=== PATIENT | female | born 1955 | race Caucasian/White ===

== ENCOUNTER 2017-11-13 08:53 | Day surgery (SDC) | payer MEDICAID ==
[~2017-11-13] VITALS: Ht 157.5 cm; Wt 117.0 kg
[2017-11-13 08:40] VITALS: BP 136/80
[~2017-11-13 08:53] MED LIST: ALBU8.5H8 INH; AMLO5TAB16 PO; ATOR-2 PO; AZIT250T PO; CARV-49 PO; CEFP100T7 PO; CEPH500C5 PO; GABA-532 PO; GUAI120L55 PO; INSU100V36 SQ; LACT1CAP26 PO; LANTUS SQ; METF10002 PO; MOME13HF2 INH; PHEN-716 PO; POTA10TA15 PO; SPIIN IH; TRAZ-143 PO; VALS80TA31 PO
[2017-11-13] MEDS ORDERED: LIDOcaine 1% (10mg/ml) 2ml vial ONE (08:54)
[2017-11-13] MEDS ORDERED: normal saline 1000ml 1,000 ML IV PRN (09:05)
[2017-11-13] MEDS ORDERED: PROC10VI (09:27)
[2017-11-13] MEDS ORDERED: ONDA4TAB9 SL (09:27)
[2017-11-13] MEDS ORDERED: DOCU-148 PO (09:27)
[2017-11-13] MEDS ORDERED: ATR0.5NEB IH (09:27)
[2017-11-13] MEDS ORDERED: ASPI-611 PO (09:27)
[2017-11-13] MEDS ORDERED: HYDR-3964 PO (09:27)
[2017-11-13] MEDS ORDERED: FLUT1BLS3 (09:27)
[2017-11-13] MEDS ORDERED: POLY17PO10 PO (09:27)
[2017-11-13] MEDS ORDERED: DOCU283E2 (09:27)
[2017-11-13] MEDS ORDERED: OMEP20TA23 PO (09:27)
[2017-11-13] MEDS ORDERED: ACET650T11 (09:27)
[2017-11-13] MEDS ORDERED: HEPARIN SUBCUT (09:27)
[2017-11-13] MEDS ORDERED: TIOT18CA3 (09:27)
[2017-11-13] MEDS ORDERED: FOLI1CAP PO (09:27)
[2017-11-13] MEDS ORDERED: ALB0.5UD IH (09:27)
[2017-11-13] MEDS ORDERED: TRAM50TA2 PO (09:27)
[2017-11-13] MEDS ORDERED: BISA10SU60 (09:27)
[2017-11-13] MEDS ORDERED: FURO-149 PO (09:27)
[2017-11-13] MEDS ORDERED: SEVE800T8 PO (09:27)
[2017-11-13] MEDS ORDERED: CARV3.12 PO (09:27)
[2017-11-13] MEDS ORDERED: fentaNYL/PF 50MCG/1 ML 2ML syringe IV PRN (10:25)
[2017-11-13] MEDS ORDERED: heparin 1,000 units/ml 10ml inj ICATH ONE (10:25)
[2017-11-13] MEDS ORDERED: LIDOcaine 1%/PF (10mg/ml) 5ml vial SQ ONE (10:25)
[2017-11-13] MEDS ORDERED: LIDOcaine 1%/PF (10mg/ml) 5ml vial ONE (10:31)
[2017-11-13] MEDS ORDERED: fentaNYL/PF 50MCG/1 ML 2ML syringe ONE (10:39)
[2017-11-13] MEDS ORDERED: heparin 1,000unit/ml 10ml vial 10 ML ONE (10:40)
[2017-11-13 10:43] VITALS: BP 180/89
[2017-11-13] MEDS ORDERED: cefazolin/dext.iso 2gm/50ml 50 ML IV ONE (10:53)
[2017-11-13 11:10] VITALS: BP 98/58
[2017-11-13 11:15] VITALS: BP 99/60
[2017-11-13 11:30] VITALS: BP 134/63
[2017-11-13 11:45] VITALS: BP 123/58
[2017-11-13] MEDS ORDERED: cefazolin/dext.iso 2gm/50ml 50 ML IV SCH (16:00)
== END 2017-11-13 11:53 | disposition home or self-care (01) ==
LOC: SSTAY O 08:53
PROVIDERS: ATTEND Radiology Diagnostic Radiology
DX: T82.49XA Other complication of vascular dialysis catheter, initial encounter (principal); E11.22 Type 2 diabetes mellitus with diabetic chronic kidney disease; I12.9 Hypertensive chronic kidney disease with stage 1 through stage 4 chronic kidney disease, or unspecified chronic kidney disease; N18.9 Chronic kidney disease, unspecified; J44.9 Chronic obstructive pulmonary disease, unspecified; E78.5 Hyperlipidemia, unspecified; M19.90 Unspecified osteoarthritis, unspecified site; K21.9 Gastro-esophageal reflux disease without esophagitis; Z90.710 Acquired absence of both cervix and uterus; Z98.890 Other specified postprocedural states; Z89.512 Acquired absence of left leg below knee; Z79.4 Long term (current) use of insulin; Y83.8 Other surgical procedures as the cause of abnormal reaction of the patient, or of later complication, without mention of misadventure at the time of the procedure; Y92.9 Unspecified place or not applicable
CPT/HCPCS: 36581; 77001; 82948; C1750; C1769; J0690; J1644; J2001; J3010; J3490; J7030

== ENCOUNTER 2017-11-22 08:27 | Day surgery (SDC) | payer MEDICAID ==
[~2017-11-22] VITALS: Ht 157.5 cm; Wt 117.0 kg
[~2017-11-22 08:27] MED LIST changes: +ACET650T11; +ALB0.5UD IH; -ALBU8.5H8 INH; -AMLO5TAB16 PO; +ASPI-611 PO; +ATR0.5NEB IH; -AZIT250T PO; +BISA10SU60; -CARV-49 PO; +CARV3.12 PO; -CEFP100T7 PO; -CEPH500C5 PO; +DOCU-148 PO; +DOCU283E2; +FLUT1BLS3; +FOLI1CAP PO; +FURO-149 PO; -GUAI120L55 PO; +HEPARIN SUBCUT; +HYDR-3964 PO; -LACT1CAP26 PO; -METF10002 PO; -MOME13HF2 INH; +OMEP20TA23 PO; +ONDA4TAB9 SL; -PHEN-716 PO; +POLY17PO10 PO; -POTA10TA15 PO; +PROC10VI; +SEVE800T8 PO; +TIOT18CA3; +TRAM50TA2 PO; -TRAZ-143 PO; -VALS80TA31 PO
[2017-11-22 08:50] VITALS: BP 156/83
[2017-11-22] MEDS ORDERED: normal saline 1000ml 1,000 ML IV PRN (08:50)
[2017-11-22] MEDS ORDERED: ATOR40TA PO (09:17)
[2017-11-22 09:41] LABS: BASOPHILS # (AUTO) 0.1 X10'3 (0-0.2); BASOPHILS % (AUTO) 0.5 % (0-1); EOSINOPHILS # (AUTO) 0.7 X10'3 (0-0.9); EOSINOPHILS % (AUTO) 6.5 % (0-6); HEMATOCRIT 38.7 % (35.0-45.0); HEMOGLOBIN 12.1 g/dl (12.0-16.0); LYMPHOCYTES # (AUTO) 2.1 X10'3 (1.1-4.8); LYMPHOCYTES % (AUTO) 18.8 % (21-51); MEAN CORPUSCULAR HEMOGLOBIN 27.1 PG (27.0-31.0); MEAN CORPUSCULAR HGB CONC 31.4 % (33.0-36.5); MEAN CORPUSCULAR VOLUME 86.4 FL (78-98); MEAN PLATELET VOLUME 8.3 FL (7.4-10.4); MONOCYTES # (AUTO) 0.8 X10'3 (0-0.9); MONOCYTES % (AUTO) 7.3 % (2-12); NEUTROPHILS # (AUTO) 7.4 X10'3 (1.8-7.7); NEUTROPHILS % (AUTO) 66.9 % (42-75); PLATELET COUNT 487 X10'3 (140-440); RED BLOOD COUNT 4.48 X10'6 (4.20-5.60); RED CELL DISTRIBUTION WIDTH 16.5 % (11.5-14.5); WHITE BLOOD COUNT 11.1 X10'3 (4.5-11.0)
[2017-11-22] MEDS ORDERED: LIDOcaine 1%/PF (10mg/ml) 5ml vial SQ ONE (10:40)
[2017-11-22] MEDS ORDERED: heparin 1,000 units/ml 10ml inj ICATH ONE (10:40)
[2017-11-22] MEDS ORDERED: fentaNYL/PF 50MCG/1 ML 2ML syringe IV PRN (10:40)
[2017-11-22] MEDS ORDERED: midazolam 2 mg/2 ml injection IV PRN (10:40)
[2017-11-22] MEDS ORDERED: HYDR-4069 PO (10:52)
[2017-11-22] MEDS ORDERED: ACET-2144 PO (11:00)
[2017-11-22] MEDS ORDERED: AMLO10TA4 PO (11:00)
[2017-11-22] MEDS ORDERED: LACT1CAP65 PO (11:00)
[2017-11-22] MEDS ORDERED: fentaNYL/PF 50MCG/1 ML 2ML syringe ONE (11:04)
[2017-11-22] MEDS ORDERED: heparin 1,000unit/ml 10ml vial 10 ML ONE (11:04)
[2017-11-22] MEDS ORDERED: midazolam 2 mg/2 ml injection ONE (11:04)
[2017-11-22] MEDS ORDERED: iohexol 300 MG/1 ML 50ml polymer ONE (11:08)
[2017-11-22] MEDS ORDERED: LIDOcaine 1%/PF (10mg/ml) 5ml vial ONE (11:26)
[2017-11-22 12:10] VITALS: BP 153/68
[2017-11-22 12:25] VITALS: BP 145/70
[2017-11-22 12:40] VITALS: BP 147/87
[2017-11-22 12:55] VITALS: BP 147/81
[2017-11-22 13:06] VITALS: BP 153/83
== END 2017-11-22 13:15 ==
LOC: SSTAY O 08:27
PROVIDERS: ATTEND Radiology Diagnostic Radiology
DX: T82.49XA Other complication of vascular dialysis catheter, initial encounter (principal); I13.0 Hypertensive heart and chronic kidney disease with heart failure and stage 1 through stage 4 chronic kidney disease, or unspecified chronic kidney disease; N18.9 Chronic kidney disease, unspecified; I50.9 Heart failure, unspecified; E78.5 Hyperlipidemia, unspecified; J44.9 Chronic obstructive pulmonary disease, unspecified; K21.9 Gastro-esophageal reflux disease without esophagitis; F32.9 Major depressive disorder, single episode, unspecified; M19.90 Unspecified osteoarthritis, unspecified site; Z79.4 Long term (current) use of insulin; Z82.3 Family history of stroke; Z89.512 Acquired absence of left leg below knee; Z90.710 Acquired absence of both cervix and uterus; Z79.82 Long term (current) use of aspirin; Z87.891 Personal history of nicotine dependence; Z90.49 Acquired absence of other specified parts of digestive tract; Z95.828 Presence of other vascular implants and grafts; Z79.899 Other long term (current) drug therapy; Z98.890 Other specified postprocedural states; Z86.14 Personal history of Methicillin resistant Staphylococcus aureus infection; Y83.8 Other surgical procedures as the cause of abnormal reaction of the patient, or of later complication, without mention of misadventure at the time of the procedure; Y92.89 Other specified places as the place of occurrence of the external cause
CPT/HCPCS: 36415; 36581; 77001; 85025; 99152; 99153; A9270; C1750; C1769; J1644; J2001; J2250; J3010; J7030; Q9967; A4620

== ENCOUNTER 2018-01-12 14:45 | Inpatient (IN) | payer MEDICAID ==
[~2018-01-12] VITALS: Ht 172.7 cm; Wt 89.4 kg
[~2018-01-12 14:45] MED LIST changes: +ACET-2144 PO; +AMLO10TA4 PO; -ATOR-2 PO; +ATOR40TA PO; -DOCU283E2; +HYDR-4069 PO; +LACT1CAP65 PO; -TIOT18CA3
[2018-01-12 15:09] LABS: CLARITY,URINE Cloudy (Clear); COLOR,URINE Yellow (Yellow); GLUCOSE, URINE 250 mg/dl (Neg); KETONES,URINE Trace mg/dl (Neg); LEUKOCYTE ESTERASE ,URINE Moderate (Neg); NITRITES, URINE Negative (Neg); OCCULT BLOOD,URINE Small (Neg); PROTEIN,URINE >=1000 mg/dl (Neg); UROBILINOGEN,URINE 0.2 E.U/dL (0.2-1.0)
[2018-01-12 15:10] LABS: UA COLLECTION TYPE FOLEY CATH
[2018-01-12 15:11] LABS: BASOPHILS # (AUTO) 0.1 X10'3 (0-0.2); BASOPHILS % (AUTO) 0.6 % (0-1); EOSINOPHILS # (AUTO) 0.3 X10'3 (0-0.9); EOSINOPHILS % (AUTO) 3.2 % (0-6); HEMOGLOBIN 10.4 g/dl (12.0-16.0); LYMPHOCYTES # (AUTO) 1.9 X10'3 (1.1-4.8); LYMPHOCYTES % (AUTO) 20.6 % (21-51); MEAN CORPUSCULAR HEMOGLOBIN 28.8 PG (27.0-31.0); MEAN CORPUSCULAR HGB CONC 32.6 % (33.0-36.5); MEAN CORPUSCULAR VOLUME 88.4 FL (78-98); MEAN PLATELET VOLUME 6.8 FL (7.4-10.4); MONOCYTES # (AUTO) 0.8 X10'3 (0-0.9); MONOCYTES % (AUTO) 8.8 % (2-12); NEUTROPHILS # (AUTO) 6.1 X10'3 (1.8-7.7); NEUTROPHILS % (AUTO) 66.8 % (42-75); PLATELET COUNT 474 X10'3 (140-440); RED BLOOD COUNT 3.62 X10'6 (4.20-5.60); RED CELL DISTRIBUTION WIDTH 20.2 % (11.5-14.5); WHITE BLOOD COUNT 9.2 X10'3 (4.5-11.0)
[2018-01-12 15:16] LABS: BACTERIA,URINE 3+ /HPF (Neg); MUCUS STRANDS NONE SEEN /LPF (Neg); SQUAMOUS EPITHELIAL CELL,UR FEW /LPF (FEW); WBC CLUMPS,URINE MANY /HPF (NEGATIVE); WBC,URINE TNTC /HPF (0-4)
[2018-01-12 15:17] LABS: HYALINE CASTS 0-3 /LPF (NEGATIVE)
[2018-01-12 15:20] LABS: ALANINE AMINOTRANSFERASE 20 U/L (12-78); ALBUMIN 3.1 G/DL (3.4-5.0); ALBUMIN/GLOBULIN RATIO 0.8 (1.1-1.5); ALKALINE PHOSPHATASE 190 IU/L (46-116); ANION GAP 8 (8-16); ASPARTATE AMINO TRANSFERASE 28 U/L (10-37); BILIRUBIN,TOTAL 0.4 MG/DL (0.1-1.0); BLOOD UREA NITROGEN 35 MG/DL (7-18); BUN/CREATININE RATIO 13.1 (6.6-38.0); CALCIUM 9.7 MG/DL (8.5-10.1); CHLORIDE 104 MMOL/L (99-107); CREATININE 2.67 MG/DL (0.40-0.90); GLUCOSE 79 MG/DL (70-104); POTASSIUM 3.4 MMOL/L (3.5-5.1); SODIUM 140 MMOL/L (135-145); TOTAL CARBON DIOXIDE 27.9 MMOL/L (24-32); TOTAL PROTEIN 7.2 G/DL (6.4-8.2); eGFR 18 ML/MIN
[2018-01-12 15:30] LABS: MAGNESIUM 2.4 MG/DL (1.5-2.4)
[2018-01-12] MEDS ORDERED: CefTRIAXone 2gm/D5W 50ml 50 ML IV ONE (16:55)
[2018-01-12] MEDS ORDERED: FOLI1CAP7 (17:27)
[2018-01-12] MEDS ORDERED: CALC667C5 (17:27)
[2018-01-12] MEDS ORDERED: Nystatin (17:27)
[2018-01-12] MEDS ORDERED: ESCI10TA54 (17:27)
[2018-01-12] MEDS ORDERED: potassium Cl 20 mEq SR tablet PO PRN (17:40)
[2018-01-12] MEDS ORDERED: ipratropium/albuterol 3ml nebule NEB PRN (17:40)
[2018-01-12] MEDS ORDERED: acetaminophen 325mg tablet PO PRN (17:40)
[2018-01-12] MEDS: K, MAG and/or Phos replacement - Verify level? MC SCH (18:01)
[2018-01-12 18:17] LABS: PHOSPHORUS 4.3 MG/DL (2.3-4.5)
[2018-01-12 18:20] LABS: PLATELET COUNT 468 X10'3 (140-440)
[2018-01-12 18:27] LABS: D-DIMER 2.42 MG/L FEU (0-0.50); PARTIAL THROMBOPLASTIN TIME 28 SECONDS (22-32); PROTHROMBIN TIME 10.8 SECONDS (9.0-12.0)
[2018-01-12 19:50] VITALS: BP 145/54
[2018-01-12] MEDS ORDERED: bisacodyl 10mg suppository rectal RC ONE (20:00)
[2018-01-12 20:04] LABS: LACTIC SEPSIS 0.8 MMOL/L (0.4-2.0)
[2018-01-12] MEDS: ipratropium 0.5 MG/2.5ML nebule IH SCH (20:30)
[2018-01-12 21:21] LABS: HEMOGLOBIN A1C 6.8 % (4.5-6.2)
[2018-01-12] MEDS: hydrALAZINE 25 MG tablet PO SCH (21:34)
[2018-01-12] MEDS: furosemide 40mg tablet PO SCH (21:34)
[2018-01-12] MEDS: docusate sod 100mg capsule PO SCH (21:34)
[2018-01-12] MEDS: carVEDilol 3.125mg tablet PO SCH (21:34)
[2018-01-12] MEDS: heparin, porcine 5000 units/ml vial SQ SCH (21:36)
[2018-01-13] VITALS: BP 126/57
[2018-01-13] MEDS: ipratropium 0.5 MG/2.5ML nebule IH SCH ×4 (03:00→20:36)
[2018-01-13] MEDS: hydrALAZINE 25 MG tablet PO SCH ×4 (03:02→19:51)
[2018-01-13 04:00] LABS: BASOPHILS % (AUTO) 0.4 % (0-1); EOSINOPHILS # (AUTO) 0.4 X10'3 (0-0.9); HEMATOCRIT 31.7 % (35.0-45.0); HEMOGLOBIN 10.4 g/dl (12.0-16.0); LYMPHOCYTES % (AUTO) 20.6 % (21-51); MEAN CORPUSCULAR HEMOGLOBIN 28.9 PG (27.0-31.0); MEAN CORPUSCULAR HGB CONC 32.7 % (33.0-36.5); MEAN CORPUSCULAR VOLUME 88.2 FL (78-98); MONOCYTES # (AUTO) 0.8 X10'3 (0-0.9); MONOCYTES % (AUTO) 8.5 % (2-12); NEUTROPHILS # (AUTO) 6.4 X10'3 (1.8-7.7); NEUTROPHILS % (AUTO) 66.5 % (42-75); PLATELET COUNT 472 X10'3 (140-440); RED CELL DISTRIBUTION WIDTH 19.8 % (11.5-14.5); WHITE BLOOD COUNT 9.7 X10'3 (4.5-11.0)
[2018-01-13 04:12] LABS: ALANINE AMINOTRANSFERASE 19 U/L (12-78); ALBUMIN 3.1 G/DL (3.4-5.0); ALBUMIN/GLOBULIN RATIO 0.8 (1.1-1.5); ALKALINE PHOSPHATASE 186 IU/L (46-116); ANION GAP 13 (8-16); ASPARTATE AMINO TRANSFERASE 21 U/L (10-37); BILIRUBIN,TOTAL 0.4 MG/DL (0.1-1.0); BLOOD UREA NITROGEN 40 MG/DL (7-18); BUN/CREATININE RATIO 12.9 (6.6-38.0); CHLORIDE 104 MMOL/L (99-107); CREATININE 3.09 MG/DL (0.40-0.90); GLUCOSE 75 MG/DL (70-104); POTASSIUM 3.4 MMOL/L (3.5-5.1); SODIUM 142 MMOL/L (135-145); TOTAL CARBON DIOXIDE 25.2 MMOL/L (24-32); TOTAL PROTEIN 7.2 G/DL (6.4-8.2); eGFR 15 ML/MIN
[2018-01-13 07:00] VITALS: BP 134/53
[2018-01-13] MEDS ORDERED: albuterol 2.5 MG/3 ML nebule ONE (07:23)
[2018-01-13] MEDS: amLODIPine 5mg tablet PO SCH (08:00)
[2018-01-13] MEDS: carVEDilol 3.125mg tablet PO SCH ×2 (08:00→19:51)
[2018-01-13] MEDS: furosemide 40mg tablet PO SCH ×2 (08:00→19:51)
[2018-01-13] MEDS ORDERED: heparin 1,000 units/ml 10ml inj HE ONE ×2 (08:00)
[2018-01-13] MEDS ORDERED: normal saline 1000ml 250 ML IV PRN (08:00)
[2018-01-13] MEDS: K, MAG and/or Phos replacement - Verify level? MC SCH (08:00)
[2018-01-13] MEDS ORDERED: epoetin 20,000 units/ml inj IV ONE (08:00)
[2018-01-13] MEDS: docusate sod 100mg capsule PO SCH ×2 (08:00→19:52)
[2018-01-13] MEDS ORDERED: heparin 1,000unit/ml 10ml vial 10 ML IV ONE (08:00)
[2018-01-13] MEDS: folic acid/vitamin B complex w/vitamin C 0.8mg tablet PO SCH (10:25)
[2018-01-13] MEDS: aspirin 81mg tablet.DR PO SCH (10:25)
[2018-01-13] MEDS: sevelamer carbonate 800mg tablet PO SCH ×3 (10:26→18:00)
[2018-01-13] MEDS: pantoprazole 40mg Tablet.DR PO SCH (10:26)
[2018-01-13] MEDS: atorvastatin 20mg tablet PO SCH (10:27)
[2018-01-13] MEDS: heparin, porcine 5000 units/ml vial SQ SCH ×2 (10:29→19:52)
[2018-01-13 11:00] VITALS: BP 144/69
[2018-01-13] MEDS ORDERED: glucagon, human recombinant 1mg kit SUBCUT PRN (13:00)
[2018-01-13] MEDS ORDERED: dextrose 50%-water 50ml dispensing syringe IV PRN ×2 (13:00)
[2018-01-13] MEDS ORDERED: dextrose ORAL solution 15 GM/59 ML bottle PO PRN ×2 (13:00)
[2018-01-13] MEDS: ondansetron/PF 4mg/2ml inj IV PRN ×2 (16:36→20:57)
[2018-01-13 19:30] VITALS: BP 155/64
[2018-01-13] MEDS: CefTRIAXone/D5W-Rocephin 1gm 50 ML IV SCH (19:51)
[2018-01-13] MEDS: acetaminophen 325mg tablet PO PRN (20:59)
[2018-01-14] VITALS: BP 147/56
[2018-01-14 02:00] VITALS: BP 153/89
[2018-01-14] MEDS: ondansetron/PF 4mg/2ml inj IV PRN ×5 (02:09→23:33)
[2018-01-14] MEDS: hydrALAZINE 25 MG tablet PO SCH ×4 (02:09→19:56)
[2018-01-14] MEDS: ipratropium 0.5 MG/2.5ML nebule IH SCH ×4 (02:25→20:28)
[2018-01-14 04:05] LABS: BASOPHILS % (AUTO) 0.5 % (0-1); EOSINOPHILS # (AUTO) 0.3 X10'3 (0-0.9); EOSINOPHILS % (AUTO) 4.4 % (0-6); HEMATOCRIT 31.3 % (35.0-45.0); HEMOGLOBIN 10.1 g/dl (12.0-16.0); LYMPHOCYTES # (AUTO) 1.6 X10'3 (1.1-4.8); LYMPHOCYTES % (AUTO) 20.7 % (21-51); MEAN CORPUSCULAR HEMOGLOBIN 28.8 PG (27.0-31.0); MEAN CORPUSCULAR HGB CONC 32.4 % (33.0-36.5); MEAN CORPUSCULAR VOLUME 88.9 FL (78-98); MEAN PLATELET VOLUME 7.1 FL (7.4-10.4); MONOCYTES # (AUTO) 0.9 X10'3 (0-0.9); MONOCYTES % (AUTO) 11.7 % (2-12); NEUTROPHILS # (AUTO) 4.9 X10'3 (1.8-7.7); NEUTROPHILS % (AUTO) 62.7 % (42-75); PLATELET COUNT 446 X10'3 (140-440); RED BLOOD COUNT 3.52 X10'6 (4.20-5.60); RED CELL DISTRIBUTION WIDTH 20.8 % (11.5-14.5); WHITE BLOOD COUNT 7.9 X10'3 (4.5-11.0)
[2018-01-14 04:50] LABS: ALANINE AMINOTRANSFERASE 22 U/L (12-78); ALBUMIN 2.9 G/DL (3.4-5.0); ALBUMIN/GLOBULIN RATIO 0.7 (1.1-1.5); ALKALINE PHOSPHATASE 176 IU/L (46-116); ANION GAP 11 (8-16); ASPARTATE AMINO TRANSFERASE 16 U/L (10-37); BILIRUBIN,TOTAL 0.4 MG/DL (0.1-1.0); BLOOD UREA NITROGEN 14 MG/DL (7-18); BUN/CREATININE RATIO 7.5 (6.6-38.0); CALCIUM 9.6 MG/DL (8.5-10.1); CHLORIDE 100 MMOL/L (99-107); CREATININE 1.87 MG/DL (0.40-0.90); GLUCOSE 97 MG/DL (70-104); POTASSIUM 3.5 MMOL/L (3.5-5.1); SODIUM 138 MMOL/L (135-145); TOTAL CARBON DIOXIDE 26.8 MMOL/L (24-32); eGFR 27 ML/MIN
[2018-01-14 07:00] VITALS: BP 160/59
[2018-01-14] MEDS: pantoprazole 40mg Tablet.DR PO SCH (07:30)
[2018-01-14] MEDS: amLODIPine 5mg tablet PO SCH (08:00)
[2018-01-14] MEDS: docusate sod 100mg capsule PO SCH ×2 (08:00→19:55)
[2018-01-14] MEDS: aspirin 81mg tablet.DR PO SCH (08:00)
[2018-01-14] MEDS: sevelamer carbonate 800mg tablet PO SCH ×3 (08:00→17:42)
[2018-01-14] MEDS: furosemide 40mg tablet PO SCH ×2 (08:00→19:56)
[2018-01-14] MEDS: carVEDilol 3.125mg tablet PO SCH ×2 (08:00→19:55)
[2018-01-14] MEDS: folic acid/vitamin B complex w/vitamin C 0.8mg tablet PO SCH (08:00)
[2018-01-14] MEDS: atorvastatin 20mg tablet PO SCH (08:00)
[2018-01-14] MEDS: K, MAG and/or Phos replacement - Verify level? MC SCH (08:00)
[2018-01-14] MEDS: CefTRIAXone/D5W-Rocephin 1gm 50 ML IV SCH (08:57)
[2018-01-14] MEDS: heparin, porcine 5000 units/ml vial SQ SCH ×2 (08:58→19:56)
[2018-01-14 12:00] VITALS: BP 176/67
[2018-01-14] MEDS: piperacillin-tazo 2.25gm/50ml 50 ML IV SCH ×2 (12:36→19:55)
[2018-01-14 13:17] LABS: HBSAG SCREEN Negative (Negative)
[2018-01-14 17:36] VITALS: BP 107/56
[2018-01-14 18:40] VITALS: BP 147/57
[2018-01-14] MEDS: diatr meglu/diatrizoate 30ml oral sol.-(3 dose) bottle PO SCH (20:54)
[2018-01-15] VITALS: BP 140/55
[2018-01-15] MEDS: piperacillin-tazo 2.25gm/50ml 50 ML IV SCH ×4 (02:00→20:14)
[2018-01-15] MEDS: hydrALAZINE 25 MG tablet PO SCH ×4 (02:00→20:14)
[2018-01-15] MEDS: proCHLORperazine 10 MG/2 ml inj IV PRN ×3 (02:26→17:47)
[2018-01-15] MEDS: ipratropium 0.5 MG/2.5ML nebule IH SCH ×4 (03:00→21:00)
[2018-01-15 05:33] LABS: BASOPHILS % (AUTO) 0.6 % (0-1); EOSINOPHILS # (AUTO) 0.4 X10'3 (0-0.9); EOSINOPHILS % (AUTO) 5.3 % (0-6); HEMOGLOBIN 10.3 g/dl (12.0-16.0); LYMPHOCYTES # (AUTO) 1.4 X10'3 (1.1-4.8); LYMPHOCYTES % (AUTO) 18.8 % (21-51); MEAN CORPUSCULAR HEMOGLOBIN 28.6 PG (27.0-31.0); MEAN CORPUSCULAR HGB CONC 32.3 % (33.0-36.5); MEAN CORPUSCULAR VOLUME 88.7 FL (78-98); MEAN PLATELET VOLUME 7.1 FL (7.4-10.4); MONOCYTES # (AUTO) 0.9 X10'3 (0-0.9); MONOCYTES % (AUTO) 12.2 % (2-12); NEUTROPHILS # (AUTO) 4.8 X10'3 (1.8-7.7); NEUTROPHILS % (AUTO) 63.1 % (42-75); PLATELET COUNT 456 X10'3 (140-440); RED BLOOD COUNT 3.61 X10'6 (4.20-5.60); RED CELL DISTRIBUTION WIDTH 19.9 % (11.5-14.5); WHITE BLOOD COUNT 7.6 X10'3 (4.5-11.0)
[2018-01-15 05:58] LABS: ALANINE AMINOTRANSFERASE 18 U/L (12-78); ALBUMIN 2.9 G/DL (3.4-5.0); ALBUMIN/GLOBULIN RATIO 0.6 (1.1-1.5); ALKALINE PHOSPHATASE 183 IU/L (46-116); ANION GAP 15 (8-16); ASPARTATE AMINO TRANSFERASE 22 U/L (10-37); BILIRUBIN,TOTAL 0.4 MG/DL (0.1-1.0); BLOOD UREA NITROGEN 22 MG/DL (7-18); BUN/CREATININE RATIO 7.6 (6.6-38.0); CALCIUM 9.8 MG/DL (8.5-10.1); CHLORIDE 98 MMOL/L (99-107); CREATININE 2.89 MG/DL (0.40-0.90); GLUCOSE 97 MG/DL (70-104); POTASSIUM 3.3 MMOL/L (3.5-5.1); SODIUM 137 MMOL/L (135-145); TOTAL CARBON DIOXIDE 24.5 MMOL/L (24-32); TOTAL PROTEIN 7.8 G/DL (6.4-8.2); eGFR 17 ML/MIN
[2018-01-15 07:07] VITALS: BP 166/63
[2018-01-15] MEDS: diatr meglu/diatrizoate 30ml oral sol.-(3 dose) bottle PO SCH (07:37)
[2018-01-15] MEDS: heparin, porcine 5000 units/ml vial SQ SCH ×2 (07:42→20:15)
[2018-01-15] MEDS: pantoprazole 40mg Tablet.DR PO SCH (07:44)
[2018-01-15] MEDS: furosemide 40mg tablet PO SCH ×2 (07:45→20:15)
[2018-01-15] MEDS: aspirin 81mg tablet.DR PO SCH (07:45)
[2018-01-15] MEDS: atorvastatin 20mg tablet PO SCH (07:46)
[2018-01-15] MEDS: folic acid/vitamin B complex w/vitamin C 0.8mg tablet PO SCH (07:46)
[2018-01-15] MEDS: amLODIPine 5mg tablet PO SCH (07:48)
[2018-01-15] MEDS: potassium Cl 20 mEq SR tablet PO PRN ×2 (07:48→14:26)
[2018-01-15] MEDS: carVEDilol 3.125mg tablet PO SCH ×2 (07:49→20:15)
[2018-01-15] MEDS: sevelamer carbonate 800mg tablet PO SCH ×3 (07:52→17:53)
[2018-01-15] MEDS: K, MAG and/or Phos replacement - Verify level? MC SCH (07:53)
[2018-01-15] MEDS: docusate sod 100mg capsule PO SCH ×3 (07:53→20:15)
[2018-01-15 11:00] VITALS: BP 84/44
[2018-01-15 11:15] VITALS: BP 102/42
[2018-01-15 11:30] VITALS: BP 141/51
[2018-01-15 12:50] VITALS: BP 144/58
[2018-01-15] MEDS: lactobacillus rhamnosus 10,000 MMU CELLS/CAPSULE PO SCH (20:15)
[2018-01-16] VITALS: BP 148/51
[2018-01-16] MEDS: hydrALAZINE 25 MG tablet PO SCH ×4 (01:50→19:55)
[2018-01-16] MEDS: proCHLORperazine 10 MG/2 ml inj IV PRN ×4 (01:50→19:47)
[2018-01-16] MEDS: piperacillin-tazo 2.25gm/50ml 50 ML IV SCH ×4 (01:50→19:46)
[2018-01-16] MEDS: ipratropium 0.5 MG/2.5ML nebule IH SCH ×4 (03:00→21:31)
[2018-01-16] MEDS: ondansetron/PF 4mg/2ml inj IV PRN (05:09)
[2018-01-16 05:43] LABS: BASOPHILS # (AUTO) 0.1 X10'3 (0-0.2); BASOPHILS % (AUTO) 0.7 % (0-1); EOSINOPHILS # (AUTO) 0.4 X10'3 (0-0.9); EOSINOPHILS % (AUTO) 5.4 % (0-6); HEMATOCRIT 30.4 % (35.0-45.0); HEMOGLOBIN 9.9 g/dl (12.0-16.0); LYMPHOCYTES # (AUTO) 1.6 X10'3 (1.1-4.8); LYMPHOCYTES % (AUTO) 21.1 % (21-51); MEAN CORPUSCULAR HEMOGLOBIN 28.7 PG (27.0-31.0); MEAN CORPUSCULAR HGB CONC 32.5 % (33.0-36.5); MEAN CORPUSCULAR VOLUME 88.3 FL (78-98); MONOCYTES # (AUTO) 0.9 X10'3 (0-0.9); MONOCYTES % (AUTO) 12.3 % (2-12); NEUTROPHILS # (AUTO) 4.5 X10'3 (1.8-7.7); NEUTROPHILS % (AUTO) 60.5 % (42-75); PLATELET COUNT 431 X10'3 (140-440); RED BLOOD COUNT 3.44 X10'6 (4.20-5.60); RED CELL DISTRIBUTION WIDTH 20.9 % (11.5-14.5); WHITE BLOOD COUNT 7.4 X10'3 (4.5-11.0)
[2018-01-16 06:53] LABS: ALANINE AMINOTRANSFERASE 21 U/L (12-78); ALBUMIN 2.9 G/DL (3.4-5.0); ALBUMIN/GLOBULIN RATIO 0.7 (1.1-1.5); ALKALINE PHOSPHATASE 188 IU/L (46-116); ANION GAP 13 (8-16); ASPARTATE AMINO TRANSFERASE 18 U/L (10-37); BILIRUBIN,TOTAL 0.4 MG/DL (0.1-1.0); BLOOD UREA NITROGEN 32 MG/DL (7-18); BUN/CREATININE RATIO 8.6 (6.6-38.0); CALCIUM 9.5 MG/DL (8.5-10.1); CHLORIDE 100 MMOL/L (99-107); CREATININE 3.73 MG/DL (0.40-0.90); GLUCOSE 117 MG/DL (70-104); POTASSIUM 3.7 MMOL/L (3.5-5.1); SODIUM 139 MMOL/L (135-145); TOTAL CARBON DIOXIDE 25.8 MMOL/L (24-32); TOTAL PROTEIN 6.8 G/DL (6.4-8.2); eGFR 12 ML/MIN
[2018-01-16 07:29] VITALS: BP 126/50
[2018-01-16] MEDS: atorvastatin 20mg tablet PO SCH (07:58)
[2018-01-16] MEDS: aspirin 81mg tablet.DR PO SCH (07:58)
[2018-01-16] MEDS: amLODIPine 5mg tablet PO SCH (07:58)
[2018-01-16] MEDS: lactobacillus rhamnosus 10,000 MMU CELLS/CAPSULE PO SCH ×2 (07:58→19:55)
[2018-01-16] MEDS: docusate sod 100mg capsule PO SCH ×2 (07:58→20:00)
[2018-01-16] MEDS: pantoprazole 40mg Tablet.DR PO SCH (07:58)
[2018-01-16] MEDS: carVEDilol 3.125mg tablet PO SCH ×2 (07:58→19:55)
[2018-01-16] MEDS: folic acid/vitamin B complex w/vitamin C 0.8mg tablet PO SCH (07:58)
[2018-01-16] MEDS: sevelamer carbonate 800mg tablet PO SCH ×3 (07:59→17:45)
[2018-01-16] MEDS: furosemide 40mg tablet PO SCH ×2 (07:59→19:55)
[2018-01-16] MEDS: heparin, porcine 5000 units/ml vial SQ SCH ×2 (07:59→19:56)
[2018-01-16] MEDS: K, MAG and/or Phos replacement - Verify level? MC SCH (08:00)
[2018-01-16] MEDS ORDERED: heparin 1,000unit/ml 10ml vial 10 ML IV ONE (08:08)
[2018-01-16] MEDS ORDERED: albumin (human) 25% 100ml IV 100 ML IV PRN (08:10)
[2018-01-16] MEDS ORDERED: epoetin 20,000 units/ml inj IV ONE (08:10)
[2018-01-16] MEDS ORDERED: heparin 1,000 units/ml 10ml inj HE ONE ×2 (08:15)
[2018-01-16 11:35] VITALS: BP 124/62
[2018-01-16 18:30] VITALS: BP 151/68
[2018-01-17] VITALS (10 sets, daily range): BP systolic 131–166; BP diastolic 49–74
[2018-01-17] MEDS ORDERED: HYDROcodone/acetaminophen 5mg/325mg tablet PO ONE (00:55)
[2018-01-17] MEDS: proCHLORperazine 10 MG/2 ml inj IV PRN ×4 (01:42→21:07)
[2018-01-17] MEDS: hydrALAZINE 25 MG tablet PO SCH ×4 (01:45→21:19)
[2018-01-17] MEDS: piperacillin-tazo 2.25gm/50ml 50 ML IV SCH ×4 (01:45→20:50)
[2018-01-17 05:40] LABS: BASOPHILS % (AUTO) 0.6 % (0-1); EOSINOPHILS # (AUTO) 0.4 X10'3 (0-0.9); EOSINOPHILS % (AUTO) 5.8 % (0-6); HEMATOCRIT 31.2 % (35.0-45.0); HEMOGLOBIN 10.1 g/dl (12.0-16.0); LYMPHOCYTES # (AUTO) 1.5 X10'3 (1.1-4.8); LYMPHOCYTES % (AUTO) 21.2 % (21-51); MEAN CORPUSCULAR HGB CONC 32.5 % (33.0-36.5); MEAN CORPUSCULAR VOLUME 89.2 FL (78-98); MEAN PLATELET VOLUME 6.9 FL (7.4-10.4); MONOCYTES # (AUTO) 0.9 X10'3 (0-0.9); MONOCYTES % (AUTO) 12.9 % (2-12); NEUTROPHILS # (AUTO) 4.2 X10'3 (1.8-7.7); NEUTROPHILS % (AUTO) 59.5 % (42-75); PLATELET COUNT 423 X10'3 (140-440); RED CELL DISTRIBUTION WIDTH 20.5 % (11.5-14.5); WHITE BLOOD COUNT 7.1 X10'3 (4.5-11.0)
[2018-01-17 05:52] LABS: ALANINE AMINOTRANSFERASE 17 U/L (12-78); ALBUMIN 2.9 G/DL (3.4-5.0); ALBUMIN/GLOBULIN RATIO 0.7 (1.1-1.5); ALKALINE PHOSPHATASE 175 IU/L (46-116); ANION GAP 13 (8-16); ASPARTATE AMINO TRANSFERASE 14 U/L (10-37); BILIRUBIN,TOTAL 0.4 MG/DL (0.1-1.0); BLOOD UREA NITROGEN 12 MG/DL (7-18); BUN/CREATININE RATIO 5.5 (6.6-38.0); CALCIUM 9.2 MG/DL (8.5-10.1); CHLORIDE 98 MMOL/L (99-107); CREATININE 2.18 MG/DL (0.40-0.90); GLUCOSE 83 MG/DL (70-104); POTASSIUM 3.6 MMOL/L (3.5-5.1); SODIUM 138 MMOL/L (135-145); TOTAL CARBON DIOXIDE 27.5 MMOL/L (24-32); TOTAL PROTEIN 7.1 G/DL (6.4-8.2); eGFR 23 ML/MIN
[2018-01-17] MEDS: pantoprazole 40mg Tablet.DR PO SCH (07:30)
[2018-01-17] MEDS: docusate sod 100mg capsule PO SCH ×3 (08:00→21:24)
[2018-01-17] MEDS: K, MAG and/or Phos replacement - Verify level? MC SCH (08:00)
[2018-01-17] MEDS: sevelamer carbonate 800mg tablet PO SCH ×3 (08:00→18:00)
[2018-01-17] MEDS: aspirin 81mg tablet.DR PO SCH (08:00)
[2018-01-17] MEDS: folic acid/vitamin B complex w/vitamin C 0.8mg tablet PO SCH (08:00)
[2018-01-17] MEDS: amLODIPine 5mg tablet PO SCH (08:00)
[2018-01-17] MEDS: heparin, porcine 5000 units/ml vial SQ SCH ×2 (08:00→21:20)
[2018-01-17] MEDS: carVEDilol 3.125mg tablet PO SCH ×2 (08:00→21:19)
[2018-01-17] MEDS: furosemide 40mg tablet PO SCH ×2 (08:00→21:17)
[2018-01-17] MEDS: atorvastatin 20mg tablet PO SCH (08:00)
[2018-01-17] MEDS: methylnaltrexone br 12mg/0.6ml inj***SubQ only SQ SCH (08:00)
[2018-01-17] MEDS: lactobacillus rhamnosus 10,000 MMU CELLS/CAPSULE PO SCH ×2 (08:00→21:19)
[2018-01-17] MEDS: ondansetron/PF 4mg/2ml inj IV PRN (12:39)
[2018-01-17] MEDS: dextrose 5%-normal saline 1,000 ML IV SCH (15:34)
[2018-01-17] MEDS ORDERED: normal saline 1000ml 1,000 ML IV SCH (16:27)
[2018-01-17] MEDS ORDERED: simethicone 40mg/0.6ml oral drops 30ml MC ONE (16:30)
[2018-01-17] MEDS ORDERED: fentaNYL/PF 50MCG/1 ML 2ML syringe IV PRN (16:30)
[2018-01-17] MEDS ORDERED: MIDAZolam 5mg/5ml vial IV PRN (16:30)
[2018-01-17] MEDS ORDERED: LIDOcaine Viscous 15ml cup PO ONE (16:30)
[2018-01-17] MEDS ORDERED: fentaNYL/PF 50MCG/1 ML 2ML syringe ONE (17:05)
[2018-01-17] MEDS ORDERED: MIDAZolam 5mg/5ml vial ONE (17:06)
[2018-01-17] MEDS: sucralfate 1 gm tablet PO SCH (21:18)
[2018-01-18] VITALS: BP 154/62
[2018-01-18] MEDS: ondansetron/PF 4mg/2ml inj IV PRN (01:12)
[2018-01-18] MEDS: ipratropium 0.5 MG/2.5ML nebule IH SCH ×4 (03:00→19:44)
[2018-01-18] MEDS: piperacillin-tazo 2.25gm/50ml 50 ML IV SCH ×4 (03:53→20:22)
[2018-01-18] MEDS: hydrALAZINE 25 MG tablet PO SCH ×4 (03:53→20:23)
[2018-01-18 05:38] LABS: BASOPHILS % (AUTO) 0.5 % (0-1); EOSINOPHILS # (AUTO) 0.5 X10'3 (0-0.9); EOSINOPHILS % (AUTO) 6.6 % (0-6); HEMATOCRIT 30.8 % (35.0-45.0); LYMPHOCYTES # (AUTO) 1.2 X10'3 (1.1-4.8); LYMPHOCYTES % (AUTO) 18.4 % (21-51); MEAN CORPUSCULAR HEMOGLOBIN 28.4 PG (27.0-31.0); MEAN CORPUSCULAR HGB CONC 32.5 % (33.0-36.5); MEAN CORPUSCULAR VOLUME 87.4 FL (78-98); MEAN PLATELET VOLUME 6.5 FL (7.4-10.4); MONOCYTES # (AUTO) 0.8 X10'3 (0-0.9); MONOCYTES % (AUTO) 11.8 % (2-12); NEUTROPHILS # (AUTO) 4.3 X10'3 (1.8-7.7); NEUTROPHILS % (AUTO) 62.7 % (42-75); PLATELET COUNT 396 X10'3 (140-440); RED BLOOD COUNT 3.53 X10'6 (4.20-5.60); RED CELL DISTRIBUTION WIDTH 20.9 % (11.5-14.5); WHITE BLOOD COUNT 6.8 X10'3 (4.5-11.0)
[2018-01-18 05:58] LABS: ALANINE AMINOTRANSFERASE 16 U/L (12-78); ALBUMIN 2.9 G/DL (3.4-5.0); ALBUMIN/GLOBULIN RATIO 0.7 (1.1-1.5); ALKALINE PHOSPHATASE 167 IU/L (46-116); ANION GAP 14 (8-16); ASPARTATE AMINO TRANSFERASE 15 U/L (10-37); BILIRUBIN,TOTAL 0.5 MG/DL (0.1-1.0); BLOOD UREA NITROGEN 16 MG/DL (7-18); BUN/CREATININE RATIO 5.3 (6.6-38.0); CALCIUM 9.7 MG/DL (8.5-10.1); CHLORIDE 102 MMOL/L (99-107); CREATININE 3.01 MG/DL (0.40-0.90); GLUCOSE 109 MG/DL (70-104); POTASSIUM 3.3 MMOL/L (3.5-5.1); SODIUM 141 MMOL/L (135-145); TOTAL CARBON DIOXIDE 25.4 MMOL/L (24-32); eGFR 16 ML/MIN
[2018-01-18 07:00] VITALS: BP 160/62
[2018-01-18] MEDS ORDERED: heparin 1,000unit/ml 10ml vial 10 ML IV ONE (07:34)
[2018-01-18] MEDS ORDERED: epoetin 20,000 units/ml inj IV ONE (07:35)
[2018-01-18] MEDS ORDERED: heparin 1,000 units/ml 10ml inj IV ONE (07:35)
[2018-01-18] MEDS ORDERED: albumin (human) 25% 100ml IV 100 ML IV PRN (07:35)
[2018-01-18] MEDS ORDERED: heparin 1,000 units/ml 10ml inj HE ONE ×2 (07:40)
[2018-01-18] MEDS: sevelamer carbonate 800mg tablet PO SCH ×3 (08:00→18:00)
[2018-01-18] MEDS: K, MAG and/or Phos replacement - Verify level? MC SCH (08:00)
[2018-01-18] MEDS: heparin, porcine 5000 units/ml vial SQ SCH ×2 (08:47→20:23)
[2018-01-18] MEDS: furosemide 40mg tablet PO SCH ×2 (08:53→20:22)
[2018-01-18] MEDS: lactobacillus rhamnosus 10,000 MMU CELLS/CAPSULE PO SCH ×2 (08:53→20:23)
[2018-01-18] MEDS: pantoprazole 40mg Tablet.DR PO SCH (08:53)
[2018-01-18] MEDS: atorvastatin 20mg tablet PO SCH (08:53)
[2018-01-18] MEDS: amLODIPine 5mg tablet PO SCH (08:54)
[2018-01-18] MEDS: sucralfate 1 gm tablet PO SCH ×4 (08:54→20:22)
[2018-01-18] MEDS: carVEDilol 3.125mg tablet PO SCH ×2 (08:54→20:23)
[2018-01-18] MEDS: aspirin 81mg tablet.DR PO SCH (08:55)
[2018-01-18] MEDS: folic acid/vitamin B complex w/vitamin C 0.8mg tablet PO SCH (08:55)
[2018-01-18] MEDS: docusate sod 100mg capsule PO SCH ×2 (08:55→20:22)
[2018-01-18] MEDS: acetaminophen 325mg tablet PO PRN (11:47)
[2018-01-18 12:00] VITALS: BP 144/68
[2018-01-18] MEDS: dextrose 5%-normal saline 1,000 ML IV SCH (15:01)
[2018-01-19] MEDS: ondansetron/PF 4mg/2ml inj IV PRN ×2 (00:03→12:00)
[2018-01-19 00:19] VITALS: BP 136/53
[2018-01-19] MEDS: hydrALAZINE 25 MG tablet PO SCH ×4 (01:17→19:18)
[2018-01-19] MEDS: temazepam 15mg capsule PO PRN (01:49)
[2018-01-19] MEDS: ipratropium 0.5 MG/2.5ML nebule IH SCH ×4 (03:18→20:18)
[2018-01-19 06:08] LABS: ALANINE AMINOTRANSFERASE 12 U/L (12-78); ALBUMIN 2.8 G/DL (3.4-5.0); ALBUMIN/GLOBULIN RATIO 0.7 (1.1-1.5); ALKALINE PHOSPHATASE 158 IU/L (46-116); ANION GAP 8 (8-16); ASPARTATE AMINO TRANSFERASE 14 U/L (10-37); BILIRUBIN,TOTAL 0.4 MG/DL (0.1-1.0); BLOOD UREA NITROGEN 7 MG/DL (7-18); CALCIUM 9.2 MG/DL (8.5-10.1); CHLORIDE 104 MMOL/L (99-107); GLUCOSE 134 MG/DL (70-104); POTASSIUM 3.3 MMOL/L (3.5-5.1); SODIUM 142 MMOL/L (135-145); TOTAL CARBON DIOXIDE 29.8 MMOL/L (24-32); TOTAL PROTEIN 6.8 G/DL (6.4-8.2)
[2018-01-19 06:13] LABS: BASOPHILS % (AUTO) 0.4 % (0-1); EOSINOPHILS # (AUTO) 0.4 X10'3 (0-0.9); EOSINOPHILS % (AUTO) 5.7 % (0-6); HEMATOCRIT 30.9 % (35.0-45.0); HEMOGLOBIN 10.1 g/dl (12.0-16.0); LYMPHOCYTES # (AUTO) 1.3 X10'3 (1.1-4.8); MEAN CORPUSCULAR HEMOGLOBIN 29.3 PG (27.0-31.0); MEAN CORPUSCULAR HGB CONC 32.7 % (33.0-36.5); MEAN CORPUSCULAR VOLUME 89.5 FL (78-98); MEAN PLATELET VOLUME 7.1 FL (7.4-10.4); MONOCYTES # (AUTO) 0.7 X10'3 (0-0.9); NEUTROPHILS # (AUTO) 4.3 X10'3 (1.8-7.7); NEUTROPHILS % (AUTO) 64.9 % (42-75); PLATELET COUNT 357 X10'3 (140-440); RED BLOOD COUNT 3.45 X10'6 (4.20-5.60); RED CELL DISTRIBUTION WIDTH 18.5 % (11.5-14.5); WHITE BLOOD COUNT 6.7 X10'3 (4.5-11.0)
[2018-01-19 06:23] LABS: eGFR 29 ML/MIN
[2018-01-19 06:24] LABS: BUN/CREATININE RATIO 3.9 (6.6-38.0)
[2018-01-19] MEDS: sucralfate 1 gm tablet PO SCH ×4 (07:00→20:17)
[2018-01-19] MEDS: pantoprazole 40mg Tablet.DR PO SCH (07:30)
[2018-01-19] MEDS: docusate sod 100mg capsule PO SCH ×2 (08:00→19:18)
[2018-01-19] MEDS: folic acid/vitamin B complex w/vitamin C 0.8mg tablet PO SCH (08:00)
[2018-01-19] MEDS: sevelamer carbonate 800mg tablet PO SCH ×3 (08:00→17:51)
[2018-01-19] MEDS: heparin, porcine 5000 units/ml vial SQ SCH ×2 (08:00→19:17)
[2018-01-19] MEDS: methylnaltrexone br 12mg/0.6ml inj***SubQ only SQ SCH (08:00)
[2018-01-19] MEDS: atorvastatin 20mg tablet PO SCH (08:00)
[2018-01-19] MEDS: carVEDilol 3.125mg tablet PO SCH ×2 (08:00→19:18)
[2018-01-19] MEDS: K, MAG and/or Phos replacement - Verify level? MC SCH (08:00)
[2018-01-19] MEDS: aspirin 81mg tablet.DR PO SCH (08:00)
[2018-01-19] MEDS: furosemide 40mg tablet PO SCH ×2 (08:00→20:21)
[2018-01-19] MEDS: lactobacillus rhamnosus 10,000 MMU CELLS/CAPSULE PO SCH ×2 (08:00→19:18)
[2018-01-19] MEDS: amLODIPine 5mg tablet PO SCH (08:00)
[2018-01-19] MEDS: dextrose 5%-normal saline 1,000 ML IV SCH (08:13)
[2018-01-19] MEDS: piperacillin-tazo 2.25gm/50ml 50 ML IV SCH ×2 (08:14→19:18)
[2018-01-19] MEDS: potassium Cl 20 mEq SR tablet PO PRN ×4 (08:19→20:17)
[2018-01-19 08:34] VITALS: BP 171/69
[2018-01-19 12:22] VITALS: BP 166/78
[2018-01-19 18:00] VITALS: BP 148/60
[2018-01-20] VITALS: BP 144/57
[2018-01-20] MEDS: dextrose 5%-normal saline 1,000 ML IV SCH (00:06)
[2018-01-20] MEDS: temazepam 15mg capsule PO PRN (01:06)
[2018-01-20] MEDS: hydrALAZINE 25 MG tablet PO SCH ×3 (01:06→15:39)
[2018-01-20] MEDS: ipratropium 0.5 MG/2.5ML nebule IH SCH ×3 (02:36→15:58)
[2018-01-20 05:16] LABS: BASOPHILS % (AUTO) 0.2 % (0-1); EOSINOPHILS # (AUTO) 0.4 X10'3 (0-0.9); HEMOGLOBIN 9.8 g/dl (12.0-16.0); LYMPHOCYTES # (AUTO) 1.5 X10'3 (1.1-4.8); LYMPHOCYTES % (AUTO) 19.8 % (21-51); MEAN CORPUSCULAR HEMOGLOBIN 28.3 PG (27.0-31.0); MEAN CORPUSCULAR HGB CONC 31.7 % (33.0-36.5); MEAN CORPUSCULAR VOLUME 89.5 FL (78-98); MEAN PLATELET VOLUME 6.6 FL (7.4-10.4); MONOCYTES # (AUTO) 0.8 X10'3 (0-0.9); MONOCYTES % (AUTO) 10.4 % (2-12); NEUTROPHILS # (AUTO) 4.8 X10'3 (1.8-7.7); NEUTROPHILS % (AUTO) 63.6 % (42-75); PLATELET COUNT 363 X10'3 (140-440); RED BLOOD COUNT 3.47 X10'6 (4.20-5.60); RED CELL DISTRIBUTION WIDTH 19.7 % (11.5-14.5); WHITE BLOOD COUNT 7.6 X10'3 (4.5-11.0)
[2018-01-20 05:42] LABS: ALANINE AMINOTRANSFERASE 13 U/L (12-78); ALBUMIN 2.7 G/DL (3.4-5.0); ALBUMIN/GLOBULIN RATIO 0.7 (1.1-1.5); ALKALINE PHOSPHATASE 148 IU/L (46-116); ANION GAP 10 (8-16); ASPARTATE AMINO TRANSFERASE 16 U/L (10-37); BILIRUBIN,TOTAL 0.3 MG/DL (0.1-1.0); BLOOD UREA NITROGEN 10 MG/DL (7-18); BUN/CREATININE RATIO 4.1 (6.6-38.0); CALCIUM 8.9 MG/DL (8.5-10.1); CHLORIDE 105 MMOL/L (99-107); CREATININE 2.45 MG/DL (0.40-0.90); GLUCOSE 150 MG/DL (70-104); POTASSIUM 3.7 MMOL/L (3.5-5.1); SODIUM 142 MMOL/L (135-145); TOTAL CARBON DIOXIDE 27.3 MMOL/L (24-32); TOTAL PROTEIN 6.7 G/DL (6.4-8.2); eGFR 20 ML/MIN
[2018-01-20 06:56] VITALS: BP 153/88
[2018-01-20] MEDS: docusate sod 100mg capsule PO SCH (07:10)
[2018-01-20] MEDS: folic acid/vitamin B complex w/vitamin C 0.8mg tablet PO SCH (07:10)
[2018-01-20] MEDS: aspirin 81mg tablet.DR PO SCH (07:10)
[2018-01-20] MEDS: piperacillin-tazo 2.25gm/50ml 50 ML IV SCH (07:10)
[2018-01-20] MEDS: lactobacillus rhamnosus 10,000 MMU CELLS/CAPSULE PO SCH (07:11)
[2018-01-20] MEDS: atorvastatin 20mg tablet PO SCH (07:11)
[2018-01-20] MEDS: sucralfate 1 gm tablet PO SCH ×3 (07:11→16:31)
[2018-01-20] MEDS: pantoprazole 40mg Tablet.DR PO SCH (07:11)
[2018-01-20] MEDS: heparin, porcine 5000 units/ml vial SQ SCH (07:12)
[2018-01-20] MEDS: sevelamer carbonate 800mg tablet PO SCH ×3 (07:33→18:05)
[2018-01-20] MEDS: carVEDilol 3.125mg tablet PO SCH (08:00)
[2018-01-20] MEDS: K, MAG and/or Phos replacement - Verify level? MC SCH (08:00)
[2018-01-20] MEDS: amLODIPine 5mg tablet PO SCH (08:00)
[2018-01-20] MEDS: furosemide 40mg tablet PO SCH (08:00)
[2018-01-20] MEDS ORDERED: normal saline 1000ml 250 ML IV PRN (08:51)
[2018-01-20] MEDS ORDERED: heparin 1,000unit/ml 10ml vial 10 ML IV ONE (08:51)
[2018-01-20] MEDS ORDERED: heparin 1,000 units/ml 10ml inj HE ONE ×2 (08:55)
[2018-01-20] MEDS ORDERED: epoetin 20,000 units/ml inj IV ONE (08:55)
[2018-01-20 12:22] VITALS: BP 191/78
[2018-01-20] MEDS ORDERED: LORazepam 2 mg/ml vial IV ONE (14:00)
[2018-01-20] MEDS ORDERED: diatrozoate meglu/diatrozoate sod (37% iodine) 120ML oral solution ONE (14:21)
[2018-01-20] MEDS ORDERED: LEVO250T58 PO (16:53)
[2018-01-22] MEDS ORDERED: levoFLOXACIN 250mg tablet PO SCH (08:00)
== END 2018-01-20 19:18 | disposition home health service (06) | DRG 720 ==
LOC: ER 14:45 → ED HOLD 17:38 → EDBEDREQ 18:44 → SUR 3N 19:45
PROVIDERS: ADMIT Internal Medicine Critical Care Medicine; ATTEND Internal Medicine Critical Care Medicine
PROC: 5A1D70Z Performance of Urinary Filtration, Intermittent, Less than 6 Hours Per Day (ICD-10-PCS; 2018-01-12)
PROC: BW211ZZ Computerized Tomography (CT Scan) of Abdomen and Pelvis using Low Osmolar Contrast (ICD-10-PCS; principal; 2018-01-15)
PROC: 5A1D70Z Performance of Urinary Filtration, Intermittent, Less than 6 Hours Per Day (ICD-10-PCS; 2018-01-16)
PROC: 0DB68ZX Excision of Stomach, Via Natural or Artificial Opening Endoscopic, Diagnostic (ICD-10-PCS; 2018-01-17)
PROC: 5A1D70Z Performance of Urinary Filtration, Intermittent, Less than 6 Hours Per Day (ICD-10-PCS; 2018-01-18)
PROC: 5A1D70Z Performance of Urinary Filtration, Intermittent, Less than 6 Hours Per Day (ICD-10-PCS; 2018-01-20)
DX: A41.50 Gram-negative sepsis, unspecified (principal); I13.2 Hypertensive heart and chronic kidney disease with heart failure and with stage 5 chronic kidney disease, or end stage renal disease; K29.01 Acute gastritis with bleeding; N18.6 End stage renal disease; Z89.612 Acquired absence of left leg above knee; K31.3 Pylorospasm, not elsewhere classified; B96.20 Unspecified Escherichia coli [E. coli] as the cause of diseases classified elsewhere; I50.9 Heart failure, unspecified; J44.9 Chronic obstructive pulmonary disease, unspecified; K59.00 Constipation, unspecified; N39.0 Urinary tract infection, site not specified; B95.2 Enterococcus as the cause of diseases classified elsewhere; B96.1 Klebsiella pneumoniae [K. pneumoniae] as the cause of diseases classified elsewhere; K20.9 Esophagitis, unspecified; K29.61 Other gastritis with bleeding; Z82.3 Family history of stroke; Z82.49 Family history of ischemic heart disease and other diseases of the circulatory system; Z82.5 Family history of asthma and other chronic lower respiratory diseases; Z83.3 Family history of diabetes mellitus; Z99.2 Dependence on renal dialysis; Z79.899 Other long term (current) drug therapy; Z90.49 Acquired absence of other specified parts of digestive tract
CPT/HCPCS: 36415; 43239; 70450; 71045; 74018; 74176; 74270; 80053; 81001; 82140; 82948; 83036; 83605; 83735; 83880; 84100; 84132; 84145; 84439; 84443; 84484; 85025; 85379; 85384; 85610; 85730; 87040; 87070; 87077; 87088; 87186; 87340; 93005; 94640; 94760; 96365; 97110; 97161; 97530; 99285; A6212; A6258; G0257; G0500; J0696; J0780; J0885; J1644; J2060; J2250; J2405; J2543; J3010; J7030; J7040; J7042; Q9963